=== PATIENT | male | born 1945 | race Caucasian/White ===

== ENCOUNTER 2017-07-21 14:17 | Outpatient (CLI) | payer MEDICARE, BC ==
[2017-07-21 14:51] LABS: BASOPHILS % (AUTO) 0.8 %; EOSINOPHILS # (AUTO) 0.1 10^3/uL (0.0-0.7); EOSINOPHILS % (AUTO) 1.7 %; HGB - HEMOGLOBIN 13.3 g/dL (14.0-18.0); LYMPHOCYTES # (AUTO) 0.9 10^3/uL (1.5-3.5); LYMPHOCYTES % (AUTO) 25.4 %; MEAN CORPUSCULAR HEMOGLOBIN 30.3 pg (27.0-31.0); MEAN CORPUSCULAR HGB CONC 34.3 g/dL (32.0-36.0); MEAN CORPUSCULAR VOLUME 88.4 fL (80.0-94.0); MEAN PLATELET VOLUME 7.3 fL (7.4-11.4); MONOCYTES # (AUTO) 0.3 10^3/uL (0.0-1.0); MONOCYTES % (AUTO) 7.5 %; NEUTROPHILS # (AUTO) 2.4 10^3/uL (1.5-6.6); NEUTROPHILS % (AUTO) 64.6 %; PLT - PLATELET COUNT 220 10^3/uL (130-450); RED BLOOD COUNT 4.39 10^6/uL (4.70-6.10); RED CELL DISTRIBUTION WIDTH 13.5 % (12.0-15.0); WHITE BLOOD COUNT 3.7 x10^3/uL (4.8-10.8)
== END 2017-07-21 14:18 | disposition home or self-care (01) ==
LOC: LAB 14:17
PROVIDERS: ATTEND Family Medicine
DX: H57.12 Ocular pain, left eye (principal); R51 Headache
CPT/HCPCS: 36415; 85025; 85651; 86140

== ENCOUNTER 2021-10-16 10:19 | Outpatient (CLI) | payer MEDICARE, BC ==
[2021-10-16 14:36] LABS: BASOPHILS % (AUTO) 0.6 %; EOSINOPHILS % (AUTO) 1.2 %; HCT - HEMATOCRIT 40.7 % (42.0-52.0); HGB - HEMOGLOBIN 13.6 g/dL (14.0-18.0); LYMPHOCYTES # (AUTO) 1.4 10^3/uL (1.5-3.5); LYMPHOCYTES % (AUTO) 39.2 %; MEAN CORPUSCULAR HEMOGLOBIN 30.2 pg (27.0-31.0); MEAN CORPUSCULAR HGB CONC 33.4 g/dL (32.0-36.0); MEAN CORPUSCULAR VOLUME 90.2 fL (80.0-94.0); MEAN PLATELET VOLUME 9.7 fL (7.4-11.4); MONOCYTES # (AUTO) 0.4 10^3/uL (0.0-1.0); MONOCYTES % (AUTO) 12.1 %; NEUTROPHILS # (AUTO) 1.6 10^3/uL (1.5-6.6); NEUTROPHILS % (AUTO) 46.6 %; PLT - PLATELET COUNT 233 10^3/uL (130-450); RED BLOOD COUNT 4.51 10^6/uL (4.70-6.10); RED CELL DISTRIBUTION WIDTH 12.3 % (12.0-15.0); WHITE BLOOD COUNT 3.5 x10^3/uL (4.8-10.8)
[2021-10-16 14:40] LABS: PT - PROTHROMBIN TIME 11.6 secs (9.9-12.6)
[2021-10-16 15:04] LABS: BILIRUBIN,URINE NEGATIVE (NEGATIVE); GLUCOSE, URINE (UA) NEGATIVE (NEGATIVE); KETONES,URINE (UA) NEGATIVE (NEGATIVE); LEUKOCYTE ESTERASE, URINE NEGATIVE (NEGATIVE); NITRITE,URINE NEGATIVE (NEGATIVE); OCCULT BLOOD,URINE NEGATIVE (NEGATIVE); PROTEIN,URINE NEGATIVE (NEGATIVE); UROBILINOGEN,URINE 0.2 (NORMAL) E.U./dL (NORMAL)
[2021-10-16 15:06] LABS: CLARITY,URINE CLEAR (CLEAR)
[2021-10-16 15:27] LABS: BACTERIA,URINE None Seen /HPF (None Seen); RBC,URINE 0-5 /HPF (0-5); SQUAMOUS EPITHELIAL CELL,UR NONE SEEN (<= Few); WBC,URINE 0-3 /HPF (0-3)
[2021-10-16 15:39] LABS: % IRON SATURATION 22 % (20-50); ALBUMIN 4.1 g/dL (3.2-5.5); ALBUMIN/GLOBULIN RATIO 1.4 (1.0-2.2); ALKALINE PHOSPHATASE 53 IU/L (42-121); ALT ALANINE AMINOTRANSFERASE < 10 IU/L (10-60); AST ASPARTATE AMINOTRANSFERASE 28 IU/L (10-42); BILIRUBIN,TOTAL 0.7 mg/dL (0.2-1.0); BUN - BLOOD UREA NITROGEN 11 mg/dL (6-20); CALCIUM 9.4 mg/dL (8.5-10.3); CARBON DIOXIDE - CO2 27 mmol/L (21-32); CHLORIDE 95 mmol/L (101-111); CREATININE 0.9 mg/dL (0.6-1.2); GFR - MDRD 82 (>89); GLUCOSE 90 mg/dL (70-100); IRON 85 ug/dL (45-182); POTASSIUM 4.3 mmol/L (3.5-5.0); PREALBUMIN 24 mg/dL (18-45); SODIUM 129 mmol/L (135-145); TOTAL IRON BINDING CAPACITY 386 ug/dL (250-450); TRANSFERRIN 276 mg/dL (180-329)
[2021-10-16 21:33] LABS: ESTIMATED AVERAGE GLUCOSE 103 mg/dL (70-100); HEMOGLOBIN A1c% 5.2 % (4.27-6.07)
== END 2021-10-16 10:20 | disposition home or self-care (01) ==
LOC: LAB.S 10:19
PROVIDERS: ATTEND Nurse Practitioner Family
DX: Z01.812 Encounter for preprocedural laboratory examination (principal)
CPT/HCPCS: 36415; 80053; 81001; 82728; 83036; 83540; 84134; 84466; 85025; 85610; 87086; 87640

== ENCOUNTER 2022-05-23 12:39 | Outpatient (CLI) | payer MEDICARE, BC ==
--- NOTE | 2022-05-23 15:10 | XRAY Report ---
PROCEDURE: Chest 2 View X-Ray INDICATIONS: DYSPNEA ON EXERTION TECHNIQUE: 2 views of the chest were acquired. COMPARISON: None. FINDINGS: Surgical changes and devices: Right chest wall deep brain stimulator pulse generator with single lead projecting cephalad. Lungs and pleura: No pleural effusions or pneumothorax. Lungs are clear. Mediastinum: Mediastinal contours are normal. Heart size is normal. Bones and chest wall: No suspicious bony abnormalities. Soft tissues appear unremarkable. IMPRESSION: No acute cardiopulmonary process demonstrated radiographically. Reviewed by: Noah Sahni MD on 05/23/2022 3:09 PM PST Approved by: Noah Sahni MD on 05/23/2022 3:09 PM [facility] Station ID: [id number]
== END 2022-05-23 12:40 | disposition home or self-care (01) ==
LOC: DI.S 12:39
PROVIDERS: ATTEND Nurse Practitioner Family
DX: R06.09 Other forms of dyspnea (principal)

== ENCOUNTER 2022-06-26 12:57 | Outpatient (CLI) | payer MEDICARE, BC | END 2022-06-26 12:58 | disposition home or self-care (01) | LOC: RT 12:57 | PROVIDERS: ATTEND Nurse Practitioner Family | DX: R06.09 Other forms of dyspnea (principal) | CPT/HCPCS: 94010 ==

== ENCOUNTER 2022-07-25 08:00 | Outpatient (CLI) | payer MEDICARE, BC ==
[2022-07-25 20:18] LABS: ALBUMIN 4.1 g/dL (3.2-5.5); ALBUMIN/GLOBULIN RATIO 1.3 (1.0-2.2); ALKALINE PHOSPHATASE 59 IU/L (42-121); ALT ALANINE AMINOTRANSFERASE < 10 IU/L (10-60); AST ASPARTATE AMINOTRANSFERASE 23 IU/L (10-42); BILIRUBIN,TOTAL 0.8 mg/dL (0.2-1.0); BUN - BLOOD UREA NITROGEN 11 mg/dL (6-20); CALCIUM 9.1 mg/dL (8.5-10.3); CARBON DIOXIDE - CO2 25 mmol/L (21-32); CHLORIDE 87 mmol/L (101-111); CREATININE 0.7 mg/dL (0.6-1.2); GFR - MDRD 110 (>89); GLUCOSE 88 mg/dL (70-100); MAGNESIUM 2.1 mg/dL (1.7-2.8); POTASSIUM 4.4 mmol/L (3.5-5.0); SODIUM 122 mmol/L (135-145); TOTAL PROTEIN 7.2 g/dL (6.7-8.2)
== END 2022-07-25 23:59 | disposition home or self-care (01) ==
LOC: LAB.S 08:00
PROVIDERS: ATTEND Physician Assistant Medical
DX: R25.2 Cramp and spasm (principal)
CPT/HCPCS: 36415; 80053; 82728; 83735

== ENCOUNTER 2022-07-25 08:00 | Outpatient (CLI) | payer MEDICARE, BC ==
--- NOTE | 2022-07-25 15:48 | XRAY Report ---
PROCEDURE: Elbow 3 View RT INDICATIONS: RIGHT ELBOW PAIN TECHNIQUE: 3 views of the elbow were acquired. COMPARISON: None FINDINGS: Bones: No fractures or dislocations. No suspicious bony lesions. Soft tissues: No elbow joint effusion. No suspicious soft tissue calcifications. IMPRESSION: No acute fracture. No osseous lesion. If symptoms and/or clinical suspicion for pathology continue, f urther assessment with repeat plain films, or advanced imaging (e.g., CT, MRI, or bone scan) is recom mended for further assessment. Reviewed by: Jovita Puente MD on 07/25/2022 3:47 PM PST Approved by: Jovita Puente MD on 07/25/2022 3:47 PM PST Station ID: [id number]
--- NOTE | 2022-07-25 15:48 | XRAY Report ---
PROCEDURE: Shoulder 3 View RT INDICATIONS: RIGHT SHOULDER PAIN TECHNIQUE: 4 views of the shoulder were acquired. COMPARISON: None. FINDINGS: Bones: No fractures or dislocations. No suspicious bony lesions. Visualized ribs appear intact. P eriarticular osteophyte formation at the acromioclavicular and glenohumeral joints. Soft tissues: No suspicious soft tissue calcifications. IMPRESSION: Osteoarthritis. No acute fracture. No osseous lesion. If symptoms and/or clinical suspic ion for pathology continue, further assessment with repeat plain films, or advanced imaging (e.g., CT , MRI, or bone scan) is recommended for further assessment. Reviewed by: Jovita Puente MD on 07/25/2022 3:47 PM PST Approved by: Jovita Puente MD on 07/25/2022 3:47 PM PST Station ID: [id number]
== END 2022-07-25 23:59 | disposition home or self-care (01) ==
LOC: DI.S 08:00
PROVIDERS: ATTEND Physician Assistant Medical
DX: M25.521 Pain in right elbow (principal); M19.011 Primary osteoarthritis, right shoulder; R06.81 Apnea, not elsewhere classified; G47.8 Other sleep disorders; R41.89 Other symptoms and signs involving cognitive functions and awareness; R25.2 Cramp and spasm
CPT/HCPCS: 36415; 73030; 73080; 80053; 82728; 83735; 99203; G0463; 99212

== ENCOUNTER 2022-07-25 11:03 | Outpatient (CLI) | payer MEDICARE, BC ==
--- NOTE | 2022-07-25 12:03 | SLEEP CARE CONSULTATION ---
Information from patient questionnaire entered by Edy Dill. I have reviewed and concur with the information entered by Edy Dill. This document represents the service I personally performed and the decisions made by me, Corina Lake ARNP. History of Present Illness Service Date and Time: 07/25/2022 1103 Reason for Visit: New patient Accompanied by: Spouse Chief Complaint: reports: Unrefreshed sleep, Snoring, Other (WAKING IN THE NIGHT FEELING I CANT BREATH) Date of Onset: 3-4 MONTH Usual bedtime: 930PM Time it takes to fall asleep: 30MIN Snores at night: Yes Observed to quit breathing while asleep: No ( states she may have seen this in last week) Sleeps alone due to snoring: No Number of times waking at night: 2 Reasons for waking at night: reports: Pain, Bathroom Toss, Turn, or Twitch while sleeping: No Recalls having dreams: Yes Usually gets out of bed at: 630AM Feels refreshed in the morning: No Morning headache: No Sleepy or fatigued during the day: Yes Ever fallen asleep while driving: No Takes day naps: Yes (2-3 times a week; about 15-45 minutes) Dreams during day naps: No Prior sleep studies: No Additional HPI information: I had the pleasure of seeing JOLANTA NEGRETE today regarding the possibility of him having a sleep disorder. He is accompanied by his today who helps with communications because he has Parkinson's. His current complaints are unrefreshed sleep, snoring and waking up feeling like he can't breathe. He woke up in April 2022 feeling like he could not breathe and it scared him. He saw his neurologist and he went through some testing and his primary is also investigating. He has a pulmonary consult and now a retirement benefits specialist evaluation too because of some bigeminy they found. 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 Patient is and lives in [place]. Have you smoked in the past 12 months: No Years of smokin Quit date: 1976 Alcohol use: Yes Alcohol amount and frequency: 1 OUNCE OR 1/2 BEER ONCE OR TWICE A MONTH Caffeine use: Yes Caffeine amount and frequency: 1 CUP DAILY Family History Family history of sleep disordered breathing: No Allergies and Home Medications Known drug allergies: No Drug allergies reviewed: Yes (NKDA) Home medication list reviewed: Yes (see list in EMR) Review of Systems Weight loss over past 5 years: 21 Cardiovascular: reports: high blood pressure Respiratory: reports: shortness of breath, sputum production Gastrointestinal: reports: heartburn Urinary: reports: urgency, impotence Neurological: reports: gait or balance problems, other (Brain surgery for parkinson's, placement of electrode deep in brain). denies: headaches Psychiatric: reports: anxiety, depression Ear/Nose/Throat: reports: nasal congestion, sinus problems, hoarseness, tonsillectomy, wisdom teeth removed Endocrine: reports: sluggishness, too hot or cold Musculoskeletal: reports: joint pain, neck pain, back pain, muscle pain or cramping, mobility problems Immunologic: reports: sneezing, allergies to food or environment Physical Exam Vital signs obtained and entered by: EDY York MA Blood Pressure: 118/76 (LEFT ARM) Cuff size: regular Heart Rate: 72 (60 as noted with stethoscope-CE) O2 Saturation: 97 Height: 6 ft 2.5 in Weight: 223 lb 12.8 oz Body Mass Index: 28.3 BMI Classification: Overweight Neck circumference: 17.75 Mouth and throat: narrow oropharynx Soft palate: long Hard palate: normal Uvula: normal Uvula visualization: 25% Mallampati Class III Tongue: enlarged in size with teeth abdullahi on lateral edges Tonsils: absent bilaterally Neck: normal w/o lymphadenopathy or thyromegaly Heart: regular rate and rhythm Lungs: clear bilaterally Impression and Plan 1. Suspected Obstructive Sleep Apnea-Hypopnea Syndrome, as suggested by a history of irregular snoring, observed cessation of breath while asleep, gasping or choking in sleep, unrefreshed sleep and cognitive impairment. Narrow oropharynx and obesity are common predisposing factors for obstructive sleep apnea-hypopnea syndrome. I recommend proceeding to polysomnography to confirm the diagnosis and to assess severity. If the patient has significant sleep disordered breathing, a manual CPAP titration study will also be performed to find the optimal treatment pressure. I informed the patient of what the sleep studies involve and after some discussion, obtained agreement to proceed. The pathophysiology of obstructive sleep apnea-hypopnea syndrome was discussed with the patient and health risks of cardiovascular and cerebrovascular disease if not treated. Risks of drowsy driving discussed in detail and patient advised to avoid long distance driving and to date puller at the first sign of drowsiness. Patient agreed to plan. Patient has Parkinson's and uses a walker to get around. His states he can stand at the bedside to use a urinal at night because he does not move well at night to go to bathroom. I will have him bring a urinal with him and try to get a bedside commode for his use during the study. He is alert and a fairly good historian but does have occasional lapses in memory. His states she will stay the night with him if needed. * Schedule polysomnography * Avoid long distance driving or driving when feeling sleepy. * Avoid alcohol, sedative and muscle relaxant around bedtime. * Attempt to lose weight. * Review instructions provided by trained office staff on how to prepare for the sleep study. * Return for follow-up after sleep study completed. Counseling Topics: Weight loss health impact Visit Type: In Office Other Participants: Spouse/Significant Other Time Spent with Patient (minutes): 44 Provider Statement: I spent 100% of the Face to Face Visit with the patient with greater than 50% spent counseling the patient and coordination of care.
[2022-07-25 12:04] VITALS: BP 118/76
== END 2022-07-25 11:04 | disposition home or self-care (01) ==
LOC: SC 11:03
PROVIDERS: ATTEND Nurse Practitioner Family
DX: R06.81 Apnea, not elsewhere classified (principal); G47.8 Other sleep disorders; R41.89 Other symptoms and signs involving cognitive functions and awareness
CPT/HCPCS: 99203; 99212

== ENCOUNTER 2024-02-04 16:40 | Outpatient (CLI) | payer MEDICARE, BC | END 2024-02-04 23:59 | disposition critical access hospital (66) | LOC: EMS 16:40 | DX: R07.81 Pleurodynia (principal); S80.211A Abrasion, right knee, initial encounter; W01.0XXA Fall on same level from slipping, tripping and stumbling without subsequent striking against object, initial encounter; Y93.89 Activity, other specified; Y92.008 Other place in unspecified non-institutional (private) residence as the place of occurrence of the external cause | CPT/HCPCS: A0425; A0427 ==

== ENCOUNTER 2024-02-04 17:10 | Emergency (ER) | payer MEDICARE, BC ==
--- NOTE | 2024-02-04 17:38 | ED Physician Documentation ---
History of Present Illness - Stated complaint Stated Complaint: GLF - Chief complaint Chief Complaint: Trauma Ch/Bk - History obtained from History obtained from: Patient - History of Present Illness Timing: Prior to arrival - Additonal information Additional information: Patient is a 78-year-old male presenting to the emergency department with right chest pain. Patient fell shortly prior to arrival was able to get back up and brought in by his . Patient did not hit his head did not lose consciousness. He notes persistent pain to the right side of his ribs. He notes he was outside when he tripped. Patient has past medical history remarkable for Parkinson's disease. Patient is not on any blood thinners. No previous injuries to this area. PD PAST MEDICAL HISTORY - Past Medical History Past Medical History: Yes Cardiovascular: Hypertension Neuro: Parkinson's - Past Surgical History Past Surgical History: Yes - Present Medications Home Medications: Ambulatory Orders Medication Instructions Recorded Confirmed Baclofen [Lioresal] 5 mg PO TID PRN 07/25/22 02/04/24 Melatonin/Pyridoxine [Melatonin 5 5 mg PO HS 07/25/22 02/04/24 mg Tablet] Mirtazapine 15 mg PO HS 07/25/22 02/04/24 Niagen See Rx Instructions .ROUTE .COMPLEX 07/25/22 02/04/24 Rasagiline [Azilect] 1 mg PO DAILY 07/25/22 02/04/24 Vitamin B Complex [B-Complex] 1 tab PO DAILY 07/25/22 02/04/24 Carbidopa/Levodopa [Carbidopa-Levo 0.5 tab PO DAILY 02/04/24 02/04/24 ER 25-100 Tab] Fluoxetine HCl 60 mg PO DAILY 02/04/24 02/04/24 Lactobacillus Combination No.4 1 each PO DAILY 02/04/24 02/04/24 [Probiotic] Losartan Potassium 25 mg PO DAILY 02/04/24 02/04/24 Rivastigmine [Exelon 9.5MG] 1 each TOP DAILY 02/04/24 02/04/24 clonazePAM [Klonopin] 0.25 mg PO TID PRN 02/04/24 02/04/24 cycloSPORINE [Cyclosporine] 1 each OP BID 02/04/24 02/04/24 - Allergies Allergies/Adverse Reactions: Allergies Allergy/AdvReac Type Severity Reaction Status Date / Time No Known Drug Allergies Allergy Verified 02/04/24 21:58 - Social History Does the pt smoke?: Yes Smoking Status: Current every day smoker PD ED PE NORMAL - Vitals Vital signs reviewed: Yes - General General: Alert and oriented X 3, No acute distress - HEENT HEENT: Atraumatic - Neck Neck: Supple, no meningeal sign, C-Spine cleared by NEXUS criteria, Other (Full range of motion of neck no C-spine tenderness no obvious deformity or step-off on examination.) - Cardiac Cardiac: RRR, No gallop - Respiratory Respiratory: No respiratory distress, Clear bilaterally, Other (Right rib tenderness on examination with bruising noted to right ribs. Significant tenderness on light touch. Mild swelling noted to right ribs.) - Abdomen Abdomen: Normal bowel sounds, Other (Abdomen is soft without rebound or guarding. No tenderness to palpation of abdomen.) - Back Back: Other (No C-spine tenderness on examination.) - Extremities Extremities: No deformity, Other (Reproducible right hip pain on right hip but strenght intact and neurovascularly intact distal. Pulses intact 2+ no obvious lower extremity swelling or abnormal sensation) - Neuro Neuro: Alert and oriented X 3 Eye Opening: Spontaneous Motor: Obeys Commands Verbal: Oriented GCS Score: 15 Results - Vitals Vitals: Vital Signs - 24 hr 02/04/24 02/04/24 02/04/24 17:15 17:22 17:34 Temperature 36.4 C L Heart Rate 63 62 Respiratory 16 17 16 Rate Blood Pressure 135/85 H 110/70 O2 Saturation 98 100 02/04/24 02/04/24 02/04/24 18:22 19:03 20:00 Temperature Heart Rate 62 69 63 Respiratory 17 16 18 Rate Blood Pressure 112/70 120/79 146/99 H O2 Saturation 99 99 99 02/04/24 21:00 Temperature Heart Rate 65 Respiratory 17 Rate Blood Pressure 179/97 H O2 Saturation 100 Oxygen O2 Source Room air - Labs Labs: Laboratory Tests 02/04/24 02/04/24 18:31 18:31 WBC 8.9 RBC 3.95 L Hgb 12.2 L Hct 36.2 L MCV 91.6 MCH 30.9 MCHC 33.7 RDW 12.1 Plt Count 190 MPV 9.4 Neut # (Auto) 7.1 H Lymph # (Auto) 1.0 L Pratt # (Auto) 0.7 Eos # (Auto) 0.0 Baso # (Auto) 0.0 Absolute Nucleated RBC 0.00 Nucleated RBC % 0.0 Sodium 130 L Potassium 3.8 Chloride 96 L Carbon Dioxide 29 Anion Gap 5.0 L BUN 15 Creatinine 0.8 Estimated GFR (MDRD) 93 Glucose 115 H Calcium 9.1 Total Bilirubin 0.5 AST 16 ALT 3 L Alkaline Phosphatase 68 Total Protein 6.3 L Albumin 3.9 Globulin 2.4 Albumin/Globulin Ratio 1.6 PD Medical Decision Making - ED course Complexity details: reviewed old records, reviewed results, re-evaluated patient ED course: Patient is a 78-year-old male presents to the emergency department with right rib pain after fall. Patient had mechanical fall and has history of Parkinson's most likely suspect of his fall. Patient did not hit his head and did not lose consciousness. Patient is not on blood thinners. Patient reports persistent right rib pain. X-ray obtained of right ribs show possible rib fractures on the 10th and 11th ribs. With mild displacement. Given concern and persistent pain despite 6 mg of morphine here in the emergency department will obtain CT rib cage and CT of r ight hip. CT pelvis shows no acute fracture however CT ribs shows subacute T12 compression fracture with 3 broken ribs and possible flail chest given 10th rib is broken in 2 [address]. Patient has persistent pain here in emergency department despite morphine Toradol and lidocaine treatment. Basic labs here in the emergency department show no acute changes with hemoglobin showing mild anemia but this appears stable and no significant leukocytosis or electrolyte abnormality. Discussed case with Dr. Salgado at [facility] in [place] who is a trauma surgeon. He is agreeable with patient being transferred to [facility] in [place]. Discussed with patient and he is agreeable to transfer at this time. Patient was transferred by ACLS for monitoring of pain and symptom control. Departure - Departure Disposition: 02 Transfer Acute Care Hosp Clinical Impression: Fracture of three ribs of right side, Hemothorax on right, Thoracic compression fracture, Fracture of rib Condition: Fair Instructions: ED Fx Comp Vertebral, ED Fx Rib Forms: PCP List
[2024-02-04] MEDS: MORPHINE 2 MG/ML CARPUJECT IVP STA ×2 (18:33→20:17)
[2024-02-04 18:36] LABS: BASOPHILS % (AUTO) 0.3 %; EOSINOPHILS % (AUTO) 0.3 %; HCT - HEMATOCRIT 36.2 % (42.0-52.0); HGB - HEMOGLOBIN 12.2 g/dL (14.0-18.0); LYMPHOCYTES % (AUTO) 10.7 %; MEAN CORPUSCULAR HEMOGLOBIN 30.9 pg (27.0-31.0); MEAN CORPUSCULAR HGB CONC 33.7 g/dL (32.0-36.0); MEAN CORPUSCULAR VOLUME 91.6 fL (80.0-94.0); MEAN PLATELET VOLUME 9.4 fL (7.4-11.4); MONOCYTES # (AUTO) 0.7 10^3/uL (0.0-1.0); NEUTROPHILS # (AUTO) 7.1 10^3/uL (1.5-6.6); NEUTROPHILS % (AUTO) 80.4 %; PLT - PLATELET COUNT 190 10^3/uL (130-450); RED BLOOD COUNT 3.95 10^6/uL (4.70-6.10); RED CELL DISTRIBUTION WIDTH 12.1 % (12.0-15.0); WHITE BLOOD COUNT 8.9 x10^3/uL (4.8-10.8)
--- NOTE | 2024-02-04 18:54 | XRAY Report ---
PROCEDURE: Ribs w/PA Chest 3+V RT INDICATIONS: right rib pain TECHNIQUE: 4 views of the ribs were acquired, along with a single view chest. COMPARISON: 05/23/2022 FINDINGS: Surgical changes and devices: Right chest wall pacemaker. Bones and chest wall: Mildly displaced fractures of the right lateral 10th and 11th ribs.. No suspi cious bony lesions. Overlying soft tissues appear unremarkable. Lungs and pleura: No pleural effusions or pneumothorax. Lungs appear clear. Mediastinum: Mediastinal contours appear normal. Heart size is normal. IMPRESSION: Mildly displaced fractures of the right lateral 10th and 11th ribs. No pneumothorax is seen. Reviewed by: Randy Ashton MD on 02/04/2024 6:53 PM PDT Approved by: Randy Asthon MD on 02/04/2024 6:53 PM PDT Station ID: [id number]
[2024-02-04 18:57] LABS: ALBUMIN 3.9 g/dL (3.2-5.5); ALBUMIN/GLOBULIN RATIO 1.6 (1.0-2.2); BILIRUBIN,TOTAL 0.5 mg/dL (0.2-1.0); CALCIUM 9.1 mg/dL (8.5-10.3); CREATININE 0.8 mg/dL (0.6-1.3); POTASSIUM 3.8 mmol/L (3.5-4.5); TOTAL PROTEIN 6.3 g/dL (6.4-8.9)
--- NOTE | 2024-02-04 20:53 | CT Report ---
PROCEDURE: Chest WO INDICATIONS: rib fracture and fall TECHNIQUE: A CT scan of the chest was performed. Intravenous contrast media was not administered. Images were re corded and evaluated at appropriate window settings. Reformats: axial MIP of the chest, coronal and s agittal. For radiation dose reduction, the following was used: automated exposure control, adjustment of mA and/or kV according to patient size. COMPARISON: None. FINDINGS: Image quality: Diagnostic. Chest wall and lower neck: No thyroid nodule which requires sonographic follow up. No axillary or sup raclavicular adenopathy by size. Lungs and pleura: No consolidation. Small volume right-sided pleural fluid. No pneumothorax. Scattere d solid pulmonary nodules, largest measuring 4 x 6 mm in the left lower lobe (series 4, image 82). Mediastinum: Heart size is normal. No pericardial effusion. No large vessel abnormality. No mediastin al adenopathy by size criteria. Bones: The right posterior 12th, 11th, 10th ribs are fractured. The 10th rib is fractured in 2 locati ons. Subacute compression deformity of the T12 vertebral body. Upper Abdomen: Cholelithiasis. IMPRESSION: Fractured right posterior 10th through 12th ribs, with mild displacement. The 10th rib is fractured i n 2 locations, which may predispose to flail chest pathology. Small volume right-sided pleural fluid, possibly hemothorax. No pneumothorax. Scattered solid pulmonary nodules, largest measuring 5 mm short axis. Consider 12 month follow-up if this patient is at high risk for developing lung cancer, per Fleischner Society guidelines. Subacute compression deformity of the T12 vertebral body. Reviewed by: Zach Amin MD on 02/04/2024 8:52 PM PDT Approved by: Zach Amin MD on 02/04/2024 8:52 PM PDT Station ID: [id number]
--- NOTE | 2024-02-04 20:56 | CT Report ---
PROCEDURE: Pelvis WO INDICATIONS: right hip pain TECHNIQUE: Noncontrast 3 mm axial sections acquired through the bony pelvis, with coronal and sagittal reformatt ing. For radiation dose reduction, the following was used: automated exposure control, adjustment of mA and/or kV according to patient size. COMPARISON: None. FINDINGS: Image quality: Excellent. Bones: No displaced fracture. Soft tissues: Fat within the canal of [place]. Prior partial colectomy. No significant hip joint effusi ons. IMPRESSION: No displaced fracture. Reviewed by: Zach Amin MD on 02/04/2024 8:55 PM PDT Approved by: Zach Amin MD on 02/04/2024 8:55 PM PDT Station ID: [id number]
[2024-02-04] MEDS: KETOROLAC 15 MG/ML VIAL IVP STA (21:23)
[2024-02-04] MEDS: LIDOCAINE PATCH 4% TOP STA (21:26)
[2024-02-04 23:01] VITALS: BP 182/93; O2SAT 97
[2024-02-04] MEDS: MORPHINE 10 MG/ML VIAL IVP STA (23:12)
== END 2024-02-04 23:20 | disposition short-term general hospital (02) ==
LOC: EDUNIT# → ED 17:10
DX: S22.41XA Multiple fractures of ribs, right side, initial encounter for closed fracture (principal); S27.1XXA Traumatic hemothorax, initial encounter; S22.080A Wedge compression fracture of T11-T12 vertebra, initial encounter for closed fracture; W01.0XXA Fall on same level from slipping, tripping and stumbling without subsequent striking against object, initial encounter; Y92.007 Garden or yard of unspecified non-institutional (private) residence as the place of occurrence of the external cause; G20.A1 Parkinson's disease without dyskinesia, without mention of fluctuations; I10 Essential (primary) hypertension; Z79.899 Other long term (current) drug therapy; F17.200 Nicotine dependence, unspecified, uncomplicated
CPT/HCPCS: 36415; 71101; 71250; 72192; 80053; 85025; 96374; 96375; 96376; 99285; A9270

== ENCOUNTER 2024-02-12 09:09 | Outpatient (CLI) | payer MEDICARE, BC | END 2024-02-12 23:59 | disposition EMS.NT | LOC: EMS 09:09 | DX: K59.00 Constipation, unspecified (principal) ==